=== PATIENT | female | born 1990 | race Caucasian/White ===

== ENCOUNTER 2016-11-25 21:31 | Emergency (ER) | payer OTHER ==
[~2016-11-25] VITALS: Ht 160 cm; Wt 82.5 kg
[~2016-11-25 21:31] MED LIST: CEPH-443 PO; ONDA4TAB14 PO; PREN1TAB62 PO; RANI150T9 PO; TRAM50TA2 PO
[2016-11-25 21:49] VITALS: Ht 160 cm; Wt 82.5 kg
[2016-11-26] MEDS ORDERED: IBUPROFEN 600 MG TAB PO ONE (00:30)
--- NOTE | 2016-11-26 01:18 | RADRPT ---
PROCEDURE: XR wrist. CLINICAL INDICATION: Trauma. TECHNIQUE: AP, lateral and oblique views of the right wrist was obtained. COMPARISON: There are no similar studies submitted for comparison. FINDINGS: There is no acute fracture or dislocation. No destructive osseous lesions are seen. The joint spaces are unremarkable. IMPRESSION: No acute fracture or dislocation. RPTAT: HIKT .Pérez Pace MD, MD Date Time Electronically viewed and signed by .Pérez Pace MD, on 11/26/2016 01:18 .T/
--- NOTE | 2016-11-26 01:33 | ERD ---
ER Documentation Chief Complaint Date/Time DATE: 11/26/16 TIME: 00:07 Chief Complaint SHARP RIGHT HAND PAIN X1 WEEK DENIES TRAUMA HPI This is a 26-year-old female who presents to emergency department with right hand pain for one week. Patient denies any trauma or falls. Patient describes the right hand pain as tight, 8 out of 10 constant, nonradiating pain and located near her right thumb. Patient has not taken any pain medications. The use of her right hand makes her pain worse and rest relieves the pain. Patient denies any elbow and shoulder pain. Patient denies fever, numbness and tingling to the right hand. ROS All systems reviewed and are negative except as per history of present illness. Medications Home Meds Active Scripts Ibuprofen* (Motrin*) 600 Mg Tab, 600 MG PO Q6H Y for PAIN AND OR ELEVATED TEMP, #30 TAB Prov:CASI CAVAZOS NP 11/26/16 Ondansetron (Ondansetron Odt) 4 Mg Tab.rapdis, 4 MG PO Q6H Y for NAUSEA AND/OR VOMITING, #10 TAB Prov:CANDY BRADFORD 05/27/16 Tramadol HCl (Tramadol HCl) 50 Mg Tablet, 50 MG PO Q4 Y for PAIN, #20 TAB Prov:CANDY BRADFORD 05/27/16 Cephalexin* (Keflex*) 500 Mg Capsule, 500 MG PO QID for 10 Days, CAP Prov:TREY ANDERS PA-C 05/25/16 Ranitidine Hcl* (Zantac*) 150 Mg Tablet, 150 MG PO BID Y for EPIGASTRIC PAIN, # 30 TAB Prov:TRYE ANDERS PA-C 05/25/16 Reported Medications Vit-Iron Fumarate-FA ( Vitamin Tablet) 1 Each Tablet, 1 TAB PO DAILY, TAB 12/17/15 Allergies Allergies: Coded Allergies: No Known Allergy (Unverified , 05/24/16) PMhx/Soc Denies family history of diabetes, and hypertension History of Surgery: Yes Anesthesia Reaction: No Hx Neurological Disorder: No Hx Respiratory Disorders: No Hx Cardiac Disorders: No Hx Psychiatric Problems: No Hx Miscellaneous Medical Probl: Yes (GALLSTONES) Hx Alcohol Use: No Hx Substance Use: No Hx Tobacco Use: No Smoking Status: Never smoker FmHx Family History: No coronary disease, No diabetes, No other Physical Exam Vitals Vital Signs Date Time Temp Pulse Resp B/P Pulse Ox O2 Delivery O2 Flow Rate FiO2 11/25/16 21:49 97.2 68 20 141/90 99 Physical Exam GENERAL: The patient is well developed and appropriate for usual state of health, in no apparent distress. CHEST: Clear to auscultation bilaterally. There are no rales, wheezes or rhonchi. HEART: Regular rate and rhythm. No murmurs, clicks, rubs or gallops. No S3 or S4. ABDOMEN: Soft, nontender and nondistended. Good bowel sounds. No rebound or guarding. No gross peritonitis. No gross organomegaly or masses. No Mai sign or McBurney point tenderness. BACK: No midline or flank tenderness. EXTREMITIES: Equal pulses bilaterally. There is no peripheral clubbing, cyanosis or edema. No focal swelling or erythema. Full range of motion. Grossly neurovascularly intact. MUSK: Mild edema to right hand, no ecchymosis, no open wounds or abrasions, full range of motion right wrist and fingers, tender to palpation to right thumb region, +Jaye test, Negative Tinnel's sign, sensation intact to bilateral extremities, cap refill <2 seconds NEURO: Alert and oriented. Cranial nerves 2-12 intact. Motor strength in all 4 extremities with 5/5 strength. Sensation grossly intact. Normal speech and gait. SKIN: There is no apparent rash or petechia. The skin is warm and dry. HEMATOLOGIC AND LYMPHATIC: There is no evidence of excessive bruising or lymphedema. No gross cervical, axillary, or inguinal lymphadenopathy. Results 24 hrs Current Medications Medications (Trade) Dose Ordered Sig/Harmeet Route PRN Reason Start Time Stop Time Status Last Admin Dose Admin Ibuprofen (Motrin) 600 mg ONCE ONCE PO 11/26/16 00:30 11/26/16 00:31 DC 11/26/16 00:12 Right hand radiograph results: [place] [id number] Radiology Main Line: [phone] DIAGNOSTIC IMAGING REPORT Patient: RAFY CLINTON : 1990 Age: 26 Sex: F MR #: [id number] DOS: 11/26/16 0006 Ordering MD: CASI CAVAZOS NP Location: [facility] Room/Bed: PROCEDURE: XR wrist. CLINICAL INDICATION: Trauma. TECHNIQUE: AP, lateral and oblique views of the right wrist was obtained. COMPARISON: There are no similar studies submitted for comparison. FINDINGS: There is no acute fracture or dislocation. No destructive osseous lesions are seen. The joint spaces are unremarkable. IMPRESSION: No acute fracture or dislocation. RPTAT: HIKT .Pérez Pace MD, Date Time Electronically viewed and signed by .Pérez Pace MD, on 11/26/2016 01:18 .T/ CC: CASI CAVAZOS NP Patient was given medication for pain here in emergency department, after treatment, patient verbalized feeling much better. Patient's pain is improved. Procedures/MDM This is a 26-year-old female presents to emergency department with right hand pain for one week. On physical exam there is slight edema to the right dorsal hand and wrist. No ecchymosis, open wounds, or abrasions present. Patient has full range of motion of the right wrist and fingers. On physical exam patient has a positive right Jaye test. I suspect de Quervain's tenosynovitis. Medical Decision Making: Patient's pain is most likely consistent with de Quervain's tenosynovitis secondary to overuse. There is no suspicion for neurovascular compromise. Patient has intact sensation and circulation of the affected extremity. There is low suspicion for septic arthritis. Patient does not have any fever. Radiology exams of the affected area does not show any fracture or dislocation. The patient was placed and a right thumb spica splint. Patient was neurovascularly intact pre-and post-splint placement. Disposition: Home. Patient is given prescription for ibuprofen for pain and patient should wear the thumb spica splint for 3 weeks. Patient was advised to elevate the affected area and apply ice on affected area. Patient was advised that if symptoms are worse, numbness, tingling, high fever, unable to move joint , worsening symptoms, to return to emergency department immediately. Otherwise, patient is advised to follow up with the primary care doctor in 5-7 days for reevaluation of symptoms. Departure Diagnosis: Primary Impression: De Quervain's tenosynovitis, right Condition: Stable Patient Instructions: De Quervain Tenosynovitis, Treating De Quervain's Tenosynovitis, What Is De Quervain Tenosynovitis? Additional Instructions: Patient is given prescription for ibuprofen for pain and patient should wear the thumb spica splint for 3 weeks. Patient was advised to elevate the affected area and apply ice on affected area. Patient was advised that if symptoms are worse, numbness, tingling, high fever, unable to move joint, worsening symptoms , to return to emergency department immediately. Otherwise, patient is advised to follow up with the primary care doctor in 5-7 days for reevaluation of symptoms. CASI CAVAZOS NP Nov 26, 2016 00:19
[2016-11-26] MEDS ORDERED: IBUP-1542 PO (01:36)
[2016-11-26 01:46] VITALS: BP 131/88; PULSE 74; RESP 17; TEMP 98.9
== END 2016-11-26 01:47 | disposition home or self-care (01) ==
LOC: FTE 21:31
DX: M65.4 Radial styloid tenosynovitis [de Quervain] (principal)
CPT/HCPCS: 29125; 73110; Z7502; Z7610

== ENCOUNTER 2017-08-24 10:09 | Emergency (ER) | END 2017-08-24 10:27 | disposition home or self-care (01) ==